=== PATIENT | female | born 1945 | race Caucasian/White ===

== ENCOUNTER 2023-07-02 08:00 | Outpatient (CLI) | payer MEDICARE ==
--- NOTE | 2023-07-02 10:28 | XRAY Report ---
PROCEDURE: Chest 2 View X-Ray INDICATIONS: CHEST COUGH TECHNIQUE: 2 views of the chest were acquired. COMPARISON: None. FINDINGS: Surgical changes and devices: None. Lungs and pleura: There is a 3.6 cm focal opacity involving the right midlung zone not definitively localized on the lateral view. Otherwise, lungs are clear. No pneumothorax or pleural effusion. Mediastinum: Mediastinal contours appear normal. Heart size is normal. Bones and chest wall: No suspicious bony lesions. Overlying soft tissues appear unremarkable. IMPRESSION: A 3.6 cm focal opacity in the right midlung zone which may represent an infectious process. However, given duration of symptoms, a neoplastic process not excluded. Recommend further characterization wit h chest CT. Reviewed by: Deuce Quezada MD on 07/02/2023 10:27 AM [facility] Approved by: Deuce Quezada MD on 07/02/2023 10:27 AM [facility] Station ID: [id number]
== END 2023-07-02 08:15 | disposition home or self-care (01) ==
LOC: DI.N 08:00
PROVIDERS: ATTEND Physician Assistant Medical
DX: R05.9 Cough, unspecified (principal); R91.8 Other nonspecific abnormal finding of lung field

== ENCOUNTER 2023-12-28 19:13 | Outpatient (CLI) | payer MEDICARE | END 2023-12-28 23:59 | disposition short-term general hospital (02) | LOC: EMS 19:13 | DX: R58 Hemorrhage, not elsewhere classified (principal); Z95.5 Presence of coronary angioplasty implant and graft | CPT/HCPCS: A0425; A0429; A0888 ==

== ENCOUNTER 2024-01-17 01:27 | Outpatient (CLI) | payer MEDICARE | END 2024-01-17 23:59 | disposition short-term general hospital (02) | LOC: EMS 01:27 | DX: R06.00 Dyspnea, unspecified (principal); R05.9 Cough, unspecified; R06.2 Wheezing | CPT/HCPCS: A0425; A0427; A0888 ==